=== PATIENT | female | born 1955 | race Caucasian/White ===

== ENCOUNTER → 2017-12-01 | Day surgery (SDC) | payer OTHER ==
[~2017-12-01] VITALS: Ht 167.6 cm; Wt 104.3 kg
[~2017-12-01] MED LIST: ATORVASTATIN CA20 M1 PO; ATORVASTATIN CA20 MG PO; AVAPRO300 M1 PO; BUPROPION HCL150 M4 PO; CIPRO 500MG TA500 MG PO; CITALOPRAM HBR40 MG PO; CITALOPRAM HYDR40 MG PO; DYAZIDE 25 MG-31 CAP PO; FLAG500 PO; IRBESARTAN300 MG PO; MELOXICAM15 M1 PO; MELOXICAM15 MG PO; OMEPRAZOLE40 M1 PO; OMEPRAZOLE40 MG PO; OXYBUTYNIN CHLOR5 M3 PO; OXYBUTYNIN5 MG PO; PERCOCET 325 MG1 TA2 PO; TRIAMTERENE-HC1 EAC3 PO; ZOFRAN 4 MG TABL4 MG PO
--- NOTE | 2017-12-01 15:16 | Operative Report ---
Operative/Inv Procedure Report Surgery Date: 12/01/17 Name of Procedure: Colposcopy, cervical biopsy, D&C hysteroscopy Pre-Operative Diagnosis: Atypical endometrial cells, favor neoplasia, on Pap smear Post-Operative Diagnosis: Same, pathology pending Estimated Blood Loss: less than 50ml Surgeon/Care Manager Cna: Samir Mancilla MD Anesthesia: laryngeal mask airway Specimens: Cervical biopsy, endocervical curettage, and endometrial curettage Complications: None Condition: Stable Operative/Procedure Note Note: The patient was taken to the operating room and placed in dorsal supine position. Anesthesia was obtained without difficulty. She was then placed in the dorsal lithotomy position. Colposcopy was performed and faint acetyl whitening was noted on the cervix. No punctation or mosaicism was noted. A biopsy was performed at the 12:00 area on the cervix where the acetowhite lesion appeared to be more dense. Endocervical curettage was performed at that time. The patient was then prepped and draped in the usual sterile fashion. A sterile speculum was then placed in the patient's vagina. A single-tooth tenaculum was applied to the anterior lip of the cervix. The cervix was serially dilated to accommodate the diagnostic hysteroscope. The hysteroscope was inserted into the patient's uterine cavity and a mildly fluffy appearing endometrium was noted. Both ostia were visualized and appeared normal. No lesions or polyps were visualized. A small fibroid was noted along the posterior wall of the cervix impinging slightly on the cervical canal. The hysteroscope was then removed and sharp curettage was performed and a gritty texture was noted. Scant tissue was obtained and sent to pathology. All instruments were then removed from the patient's vagina and excellent hemostasis was noted. All counts were reported to be correct 2. The patient was taken out of dorsal lithotomy position and taken to the recovery room in stable condition. Discharge Disposition: PACU
== END ==
LOC: STS 03:02
DX: C54.1 Malignant neoplasm of endometrium (principal); N93.0 Postcoital and contact bleeding; I10 Essential (primary) hypertension; K21.9 Gastro-esophageal reflux disease without esophagitis; Z87.891 Personal history of nicotine dependence
CPT/HCPCS: J0131; J2250